=== PATIENT | female | born 1975 | race Caucasian/White ===

== ENCOUNTER 2017-04-10 15:37 | Emergency (ER) | payer BC ==
[2017-04-10] MEDS ORDERED: EPINEPHrine AMP 1 MG/ML IM ONE (15:51)
[2017-04-10] MEDS ORDERED: methylPREDNISolone 125 MG* 2 ML VIAL IV ONE (15:51)
[2017-04-10] MEDS ORDERED: NS 0.9% 1000 ML* 1,000 ML IV ONE (15:52)
[2017-04-10] MEDS ORDERED: EPINEPHRINE 1 MG/ML 1 ML VIAL ONE (15:55)
[2017-04-10] MEDS ORDERED: methylPREDNISolone 125 MG* 2 ML VIAL ONE (15:55)
[2017-04-10 18:55] VITALS: BP 136/73
--- NOTE | 2017-04-18 15:09 | ED ---
Elmer Ramirez Angela, scribed for Melvin Doll MD on 04/10/17 at 1612 . Allergic Reaction/Systemic - HPI Summary HPI Summary: This pt is a 42 y.o female presenting to [facility] c/o a bee sting (yellow jacket) to her foot at 15:15 today. Pt notes she took PO Benadryl (50 mg) and Pepcid ( 40 mg) after the bee sting. 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 She reports a scratchy throat, numbness of foot, and nausea. Pt denies itchiness, difficulty breathing, tongue swelling , face swelling, rash. PMHx: hypertension. - History of Current Complaint Chief Complaint: EDAllergicReaction Hx Obtained From: Patient Onset/Duration: Sudden Onset Timing: Constant Pain Intensity: 3 Location: Discrete @ - foot Aggravating Factor(s): Nothing Alleviating Factor(s): Nothing Associated Signs And Symptoms: Positive: Nausea. Negative: Cough Wheezing, Diaphoresis, Difficulty Breathing, Hoarseness, Rash, Throat Tightening - Allergies/Home Medications Allergies/Adverse Reactions: Allergies Allergy/AdvReac Type Severity Reaction Status Date / Time Bee Venom Allergy Anaphylatic Verified 04/10/17 15:46 Shock Haemophilus Influenza Allergy Anaphylatic Verified 04/10/17 15:46 Vaccines Shock jordanian cheese Allergy Anaphylatic Uncoded 04/10/17 15:46 Shock wasp Allergy Anaphylatic Uncoded 04/10/17 15:46 Shock PMH/Surg Hx/FS Hx/Imm Hx Endocrine/Hematology History: Denies: Hx Diabetes Cardiovascular History: Reports: Hx Hypertension Infectious Disease History: No Infectious Disease History: Denies: Traveled Outside the [place] in Last 30 Days - Social History Alcohol Use: None Substance Use Type: Reports: None Smoking Status (MU): Never Smoked Tobacco Review of Systems Negative: Fever, Chills Negative: Erythema ENT: Other - POSITIVE: "Scratchy" throat Negative: Sore Throat Negative: Chest Pain Negative: Shortness Of Breath, Cough Negative: Abdominal Pain, Vomiting, Nausea Negative: dysuria, hematuria Negative: Myalgia, Edema Negative: Rash Neurological: Other - NEGATIVE: Dizziness All Other Systems Reviewed And Are Negative: Yes Physical Exam - Summary Physical Exam Summary: Constitutional: Well-developed, Well-nourished, Alert. (-) Distressed Skin: Warm, Dry HENT: Normocephalic; Atraumatic Eyes: Conjunctiva normal Neck: Musculoskeletal ROM normal neck. (-) JVD, (-) Stridor, (-) Tracheal deviation Cardio: Rhythm regular, rate normal, Heart sounds normal; Intact distal pulses; The pedal pulses are 2+ and symmetric. Radial pulses are 2+ and symmetric. (-) Murmur Pulmonary/Chest wall: Effort normal. (-) Respiratory distress, (-) Wheezes, (-) Rales Abd: Soft, (-) Tenderness, (-) Distension, (-) Guarding, (-) Rebound Musculoskeletal: (-) Edema Lymph: (-) Cervical adenopathy Neuro: Alert, Oriented x3 Psych: Mood and affect Normal Triage Information Reviewed: Yes Vital Signs On Initial Exam: Initial Vitals Temp Pulse Resp BP Pulse Ox 97.2 F 101 20 158/95 96 04/10/17 15:37 04/10/17 15:37 04/10/17 15:37 04/10/17 15:37 04/10/17 15:37 Vital Signs Reviewed: Yes - Anatoly Coma Scale Coma Scale Total: 15 Diagnostics - Vital Signs Vital Signs Temp Pulse Resp BP Pulse Ox 04/10/17 15:44 104 98 04/10/17 15:43 153/79 04/10/17 15:40 97.2 F 101 20 153/79 97 04/10/17 15:37 97.2 F 101 20 158/95 96 - Laboratory Lab Statement: Any lab studies that have been ordered have been reviewed, and results considered in the medical decision making process. Re-Evaluation - Re-Evaluation First Eval Re-Evaluation Time: 17:10 Comment: Pt is feeling better. Second Eval Re-Evaluation Time: 18:33 Comment: Pt is doing well. There is no recurrence of anaphylaxis. Allergic Reaction Course/Dx - Course Course Of Treatment: Elevated BP noted. - Diagnoses Provider Diagnoses: Bee sting, Anaphylaxis Discharge - Discharge Plan Condition: Stable Disposition: HOME Prescriptions: predniSONE TAB* [Deltasone TAB*] 20 mg PO DAILY #4 tab Referrals: [facility] [Outside] Additional Instructions: Your blood pressure was elevated during today's visit. Please establish a primary care physician and follow up with a primary for blood pressure reading. RETURN TO THE EMERGENCY DEPARTMENT FOR CHANGING OR WORSENING SYMPTOMS. The documentation as recorded by the Elmer angulo Angela accurately reflects the service I personally performed and the decisions made by , Melvin Doll MD.
== END 2017-04-10 18:50 | disposition home or self-care (01) ==
LOC: ED 15:37
DX: T63.441A Toxic effect of venom of bees, accidental (unintentional), initial encounter (principal); R11.0 Nausea; Y92.9 Unspecified place or not applicable
CPT/HCPCS: 96372; 99283; J0171; J2930

== ENCOUNTER 2018-03-13 15:32 | Emergency (ER) | payer OTHER ==
--- NOTE | 2018-03-13 16:26 | ED ---
- HPI Summary HPI Summary: 43 y/o female presents to the ED s/p finger stick while giving IV to a patient at around 15:00 today. 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 Pt is currently asymptomatic. - History of Current Complaint Chief Complaint: EDExposureBodyFluid Stated Complaint: FINGER STICK Time Seen by Provider: 03/13/18 16:21 Needlestick: Hollow Needle Blood on Needle: No Depth of Needlestick: Puncture Body Fluid Exposure: Blood Treatment GEM CARVER: Cleaned Wound PMH/Surg Hx/FS Hx/Imm Hx Previously Healthy: Yes Endocrine/Hematology History: Denies: Hx Diabetes Cardiovascular History: Reports: Hx Hypertension Infectious Disease History: No Infectious Disease History: Denies: Traveled Outside the [place] in Last 30 Days - Family History Known Family History: Positive: Unknown - Social History Alcohol Use: Occasionally Substance Use Type: Reports: None Smoking Status (MU): Never Smoked Tobacco Review of Systems Constitutional: Negative Eyes: Negative ENT: Negative Cardiovascular: Negative Respiratory: Negative Gastrointestinal: Negative Genitourinary: Negative Musculoskeletal: Negative Skin: Negative, Other - accidental needle stick Neurological: Negative Psychological: Normal All Other Systems Reviewed And Are Negative: Yes Physical Exam - Summary Physical Exam Summary: Appearance: Well-appearing, Well-nourished Skin: Warm, no puncture isaura noted Eyes: Normal ENT: Normal Neck: Supple, nontender Respiratory: Clear to auscultation Cardiovascular: Regular rate, regular rhythm. Normal S1, S2. Abdomen: Soft, nontender Musculoskeletal: Normal, Strength/ROM Intact Neurological: Normal, A&Ox3 Psychiatric: Normal General: No acute distress Triage Information Reviewed: Yes Vital Signs On Initial Exam: Initial Vitals Temp Pulse Resp BP Pulse Ox 98.6 F 96 20 173/88 98 03/13/18 15:35 03/13/18 15:35 03/13/18 15:35 03/13/18 15:35 03/13/18 15:35 Vital Signs Reviewed: Yes Diagnostics - Vital Signs Vital Signs Temp Pulse Resp BP Pulse Ox 03/13/18 15:35 98.6 F 96 20 173/88 98 - Laboratory Result Diagrams: 03/13/18 17:09 03/13/18 17:09 Lab Statement: Any lab studies that have been ordered have been reviewed, and results considered in the medical decision making process. Needlestick Course/Dx - Course Course Of Treatment: Pt momentarily stuck herself with needle. PEP medication offered to pt but declined totake it at this time. Incident report filed by Pola the chief nurse. Blood will be drawn from the low risk pt for Rapid HIV and Hep panel per protocol. 1st set of labs, Hep panel and HIV neg. Advised pt that blood test be one at time 0, 3 and 6th months post-exposure - Diagnoses Provider Diagnoses: Needlestick injury accident Discharge - Sign-Out/Discharge Documenting (check all that apply): Patient Departure - Discharge Plan Condition: Stable Disposition: HOME Patient Education Materials: Needle Stick Injuries (ED) Referrals: Bentley Franco MD [Primary Care Provider] - - Billing Disposition and Condition Condition: STABLE Disposition: Home
[2018-03-13 17:17] LABS: ABS Basophils 0.1 10^3/ul (0-0.2); ABS Eosinophils 0.1 10^3/ul (0-0.6); ABS Lymphocytes 2.3 10^3/ul (1.0-4.8); ABS Monocytes 0.6 10^3/ul (0-0.8); ABS Neutrophils 5.5 10^3/ul (1.5-7.7); ABS Nucleated RBC 0 10^3/ul; Eosinophil % 1.6 % (0-6); Hematocrit 36 % (35-47); Hemoglobin 11.9 g/dl (12.0-16.0); Lymphocyte % 26.9 % (25-47); Mean Corpuscular HGB Conc 33 g/dl (31-36); Mean Corpuscular Hemoglobin 26 pg (27-31); Mean Corpuscular Volume 78 fL (80-97); Nucleated Red Blood Cells % 0.1; Platelet Count 403 10^3/ul (150-450); Red Blood Count 4.58 10^6/ul (4.00-5.40); Red Cell Distribution Width 14 % (10.5-15); White Blood Count 8.6 10^3/ul (3.5-10.8)
[2018-03-13 17:40] LABS: EGFR Non-African American 67.7 (>60)
[2018-03-13 19:21] VITALS: BP 170/87
== END 2018-03-13 18:45 | disposition home or self-care (01) ==
LOC: ED 15:32
DX: S61.239A Puncture wound without foreign body of unspecified finger without damage to nail, initial encounter (principal); W46.1XXA Contact with contaminated hypodermic needle, initial encounter; Y93.F9 Activity, other caregiving; Y92.238 Other place in hospital as the place of occurrence of the external cause; Y99.0 Civilian activity done for income or pay
CPT/HCPCS: 36415; 80053; 85025; 86703; 86706; 86803; 87340; 99282

== ENCOUNTER 2018-07-27 15:46 | Emergency (ER) | payer BC ==
[2018-07-27] MEDS ORDERED: methylPREDNISolone 125 MG* 2 ML VIAL IV ONE (15:49)
[2018-07-27] MEDS ORDERED: Famotidine IV* 10 MG/ML 2 ML (20 mg) IV SLOW PU ONE (15:49)
[2018-07-27] MEDS ORDERED: diPHENhydraMINE IV* 50 MG/ML 1 ml VIAL (BENADRYL) IV ONE (15:49)
--- NOTE | 2018-07-27 15:58 | ED ---
Allergic Reaction/Systemic - HPI Summary HPI Summary: A 43 y/o female presents to [facility] with a chief complaint of an anaphylactic reaction to albanian cheese at around 15:10. She took Benadryl 50mg and Pepsid 20 mg at around 15:15. She c/o SOB and redness around her face. She rates her pain as a 0/10. - History of Current Complaint Chief Complaint: EDAllergicReaction Time Seen by Provider: 07/27/18 15:49 Hx Obtained From: Patient Onset/Duration: Sudden Onset, Started minutes ago, Still Present Timing: Constant Pain Intensity: 0 Pain Scale Used: 0-10 Numeric Aggravating Factor(s): Nothing Alleviating Factor(s): Nothing Associated Signs And Symptoms: Positive: Difficulty Breathing - Allergies/Home Medications Allergies/Adverse Reactions: Allergies Allergy/AdvReac Type Severity Reaction Status Date / Time lisinopril Allergy Coughing Verified 07/27/18 15:55 losartan Allergy See Comment Verified 07/27/18 15:55 metformin Allergy Shortness Verified 07/27/18 15:55 of Breath MS Bee Venom Allergy Anaphylatic Verified 07/27/18 15:55 Shock MS Haemophilus Influenza Allergy Anaphylatic Verified 07/27/18 15:55 Vaccines Shock Penicillins Allergy Anaphylatic Verified 07/27/18 15:55 Shock albanian cheese Allergy Anaphylatic Uncoded 07/27/18 15:55 Shock wasp Allergy Anaphylatic Uncoded 07/27/18 15:55 Shock PMH/Surg Hx/FS Hx/Imm Hx Endocrine/Hematology History: Denies: Hx Diabetes Cardiovascular History: Reports: Hx Hypertension Infectious Disease History: No Infectious Disease History: Denies: Traveled Outside the [place] in Last 30 Days - Family History Known Family History: Positive: Cardiac Disease, Hypertension, Diabetes, Other - Cancer - Social History Alcohol Use: Occasionally Substance Use Type: Reports: None Smoking Status (MU): Never Smoked Tobacco Review of Systems Positive: Shortness Of Breath Skin: Other - Positive: erythematous face All Other Systems Reviewed And Are Negative: Yes Physical Exam - Summary Physical Exam Summary: Appearance: The patient is well-nourished in no acute distress and in no acute pain. Skin: The skin is warm and dry. Erythema over face and arms. HEENT: The head is normocephalic and atraumatic. The pupils are equal and reactive. The conjunctivae are clear and without drainage. Nares are patent and without drainage. Mouth reveals moist mucous membranes and the throat is without erythema and exudate. The external ears are intact. The ear canals are patent and without drainage. The tympanic membranes are intact. Neck: The neck is supple with full range of motion and non-tender. There are no carotid bruits. There is no neck vein distension. Respiratory: Chest is non-tender. Lungs are clear to auscultation and breath sounds are symmetrical and equal. Voice is coarse. Cardiovascular: Heart is regular rate and rhythm. There is no murmur or rub auscultated. There is no peripheral edema and pulses are symmetrical and equal. Abdomen: The abdomen is soft and non-tender. There are normal bowel sounds heard in all four quadrants and there is no organomegaly palpated. Musculoskeletal: There is no back tenderness noted. Extremities are non-tender with full range of motion. There is good capillary refill. There is no peripheral edema or calf tenderness elicited. Neurological: Patient is alert and oriented to person, place and time. The patient has symmetrical motor strength in all four extremities. Cranial nerves are grossly intact. Deep tendon reflexes are symmetrical and equal in all four extremities. Psychiatric: The patient has an appropriate affect and does not exhibit any anxiety or depression. Triage Information Reviewed: Yes Vital Signs On Initial Exam: Initial Vitals Temp Pulse Resp BP Pulse Ox 99.4 F 121 24 152/105 99 07/27/18 15:47 07/27/18 15:47 07/27/18 15:47 07/27/18 15:47 07/27/18 15:47 Vital Signs Reviewed: Yes Diagnostics - Vital Signs Vital Signs Temp Pulse Resp BP Pulse Ox 07/27/18 15:52 99.4 F 108 16 155/88 99 07/27/18 15:47 99.4 F 121 24 152/105 99 - Laboratory Lab Statement: Any lab studies that have been ordered have been reviewed, and results considered in the medical decision making process. Re-Evaluation - Re-Evaluation First Eval Re-Evaluation Time: 17:40 Change: Improved Comment: Patient states that she is feling fine. Second Eval Re-Evaluation Time: 18:30 Change: Improved Comment: Patient is ready for DC. 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 She was not aware that there was supposed she is on several large and she is allergic. She started to get symptomatic with some throat closing and itchiness and took Benadryl and Pepcid. She continued to worsen therefore she signed in and was placed in room 16. IV was initiated and at that point she had a hoarse voice and diffuse urticaria but no wheezing and was not in respiratory distress. She was given IV Benadryl, Pepcid and Solu- Medrol and improved dramatically. We watched her for a while and she remained stable and she was discharged in good condition. - Diagnoses Provider Diagnoses: Allergic reaction Discharge - Sign-Out/Discharge Documenting (check all that apply): Patient Departure - DC - Discharge Plan Condition: Stable Disposition: HOME Patient Education Materials: Food Allergy (ED) Referrals: April TAPIA,Chandra Schaefer [Primary Care Provider] - (2-3 days) Additional Instructions: Follow up with your PCP in 2-3 days. Return to the ED if you experience any new or worsening symptoms. - Billing Disposition and Condition Condition: STABLE Disposition: Home - Attestation Statements Document Initiated by Miladisibe: Yes Documenting Scribe: Bal Josue Provider For Whom Vern is Documenting (Include Credential): Prashant Erwin MD Scribe Attestation: I, Bal Josue, scribed for Prashant Erwin MD on 07/27/18 at 2052. Scribe Documentation Reviewed: Yes Provider Attestation: The documentation as recorded by the Bal angulo accurately reflects the service I personally performed and the decisions made by me, Prashant Erwin MD Status of Scribe Document: Viewed
[2018-07-27 18:55] VITALS: BP 160/94
== END 2018-07-27 18:40 | disposition home or self-care (01) ==
LOC: ED 15:46
DX: T78.1XXA Other adverse food reactions, not elsewhere classified, initial encounter (principal); R06.02 Shortness of breath; R21 Rash and other nonspecific skin eruption; X58.XXXA Exposure to other specified factors, initial encounter; Z91.030 Bee allergy status; Z88.0 Allergy status to penicillin; Z88.7 Allergy status to serum and vaccine; Z88.8 Allergy status to other drugs, medicaments and biological substances; Z91.018 Allergy to other foods
CPT/HCPCS: 99284; J1200; J2930

== ENCOUNTER 2019-01-03 13:53 | Emergency (ER) | payer BC ==
--- NOTE | 2019-01-03 14:18 | ED ---
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 Reports bleeding through a super tampon per hour. Patient attempted to eat to see if symptoms would improve; however, dizziness progressed. She states her BP has been low for her while working today. Patient reports history of heavy bleeding but has never experienced secondary dizziness before. - History of Current Complaint Chief Complaint: EDDizziness Time Seen by Provider: 01/03/19 14:05 Stated Complaint: DIZZINESS PER PT Hx Obtained From: Patient Onset/Duration: Started Hours Ago Timing: Constant Vaginal Bleeding Description: Clots Number of Pads per Hour: 1 - tampon Pain Intensity: 0 Associated Signs and Symptoms: Positive: Dizziness, Weakness, Other: - low BP Alleviating Factor(s): Nothing - Allergy/Home Medications Allergies/Adverse Reactions: Allergies Allergy/AdvReac Type Severity Reaction Status Date / Time bee venom protein (honey bee) Allergy Anaphylatic Verified 01/03/19 14:00 Shock influenza virus vaccine, Allergy Anaphylatic Verified 01/03/19 14:00 specific Shock lisinopril Allergy Coughing Verified 07/27/18 15:55 losartan Allergy See Comment Verified 07/27/18 15:55 metformin Allergy Shortness Verified 07/27/18 15:55 of Breath Penicillins Allergy Anaphylatic Verified 07/27/18 15:55 Shock jordanian cheese Allergy Anaphylatic Uncoded 07/27/18 15:55 Shock wasp Allergy Anaphylatic Uncoded 07/27/18 15:55 Shock PMH/Surg Hx/FS Hx/Imm Hx Endocrine/Hematology History: Denies: Hx Diabetes Cardiovascular History: Reports: Hx Hypertension Infectious Disease History: No Infectious Disease History: Denies: Traveled Outside the [place] in Last 30 Days - Family History Known Family History: Positive: Cardiac Disease, Hypertension, Diabetes, Other - Cancer - Social History Alcohol Use: Occasionally Substance Use Type: Reports: None Smoking Status (MU): Never Smoked Tobacco Review of Systems Constitutional: Other - low BP Positive: Other - dizziness Genitourinary: Other - heavy bleeding All Other Systems Reviewed And Are Negative: Yes Physical Exam - Summary Physical Exam Summary: Appearance: Well-appearing, Well-nourished, lying in bed comfortably Skin: Warm, dry, no obvious rash Eyes: sclera anicteric, no conjunctival pallor ENT: mucous membranes moist, pharynx appears normal Neck: Supple, nontender Respiratory: Clear to auscultation, no signs of respiratory distress Cardiovascular: Normal S1, S2. No murmurs. Normal distal pulses in tibial and radial bilaterally. Abdomen: Soft, nontender, normal active bowel sounds present Musculoskeletal: Normal, Strength/ROM Intact Neurological: A&Ox3, awake and alert, mentation is normal, speech is fluent and appropriate Psychiatric: affect is normal, does not appear anxious or depressed Triage Information Reviewed: Yes Vital Signs On Initial Exam: Initial Vitals Temp Pulse Resp BP Pulse Ox 100 F 89 18 155/85 98 01/03/19 14:00 01/03/19 14:00 01/03/19 14:00 01/03/19 14:00 01/03/19 14:00 Vital Signs Reviewed: Yes Diagnostics - Vital Signs Vital Signs Temp Pulse Resp BP Pulse Ox 01/03/19 14:00 100 F 89 18 155/85 98 - Laboratory Result Diagrams: 01/03/19 14:19 01/03/19 14:19 Lab Statement: Any lab studies that have been ordered have been reviewed, and results considered in the medical decision making process. Re-Evaluation - Re-Evaluation 1 Re-Evaluation Time: 16:30 Change: Improved - Patient reports feeling better and agrees to discharge. GIGU Course/Dx - Course Course Of Treatment: 43 year old F with a chief complaint of heavy menstruating beginning last night with dizziness worsening this morning. Bloodwork and UA obtained with no concern for acute blood loss. Patient is given 2000mls of IV fluids. Patient reports feeling better and will be discharged home. Patient is agreeable with this plan. - Diagnoses Provider Diagnoses: Menorrhagia Discharge - Sign-Out/Discharge Documenting (check all that apply): Patient Departure - discharge Patient Received Moderate/Deep Sedation with Procedure: No - Discharge Plan Condition: Good Disposition: HOME Patient Education Materials: Menorrhagia (ED) Referrals: April TAPIA,Chandra Schaefer [Primary Care Provider] - Additional Instructions: Stay at home and rest until you are feeling better. I would recommend talking to you PEDIATRIC HOSPITALIST about this, as there are other option to controlling severe bleeding without hormonal therapy. - Billing Disposition and Condition Condition: GOOD Disposition: Home - Attestation Statements Document Initiated by Scribe: Yes Documenting Scribe: Nella Arias Provider For Whom Miladisibcesar is Documenting (Include Credential): Prsahant Cortez MD Scribe Attestation: I, Nella Arias, scribed for Prashant Cortez MD on 01/06/19 at 0950. Scribe Documentation Reviewed: Yes Provider Attestation: The documentation as recorded by the miladisibeNella accurately reflects the service I personally performed and the decisions made by me, Prashant Cortez MD Status of Scribe Document: Viewed
[2019-01-03 14:31] LABS: ABS Eosinophils 0.1 10^3/ul (0-0.6); ABS Lymphocytes 2.2 10^3/ul (1.0-4.8); ABS Monocytes 0.5 10^3/ul (0-0.8); ABS Neutrophils 4.8 10^3/ul (1.5-7.7); Eosinophil % 1.9 %; Hematocrit 34 % (35-47); Hemoglobin 11.2 g/dL (12.0-16.0); Lymphocyte % 29.2 %; Mean Corpuscular HGB Conc 33 g/dL (31-36); Mean Corpuscular Hemoglobin 25 pg (27-31); Mean Corpuscular Volume 77 fL (80-97); Nucleated Red Blood Cells % 0.1; Platelet Count 432 10^3/uL (150-450); Red Blood Count 4.49 10^6 /uL (3.70-4.87); Red Cell Distribution Width 15 % (10.5-15); White Blood Count 7.7 10^3/uL (3.5-10.8)
[2019-01-03] MEDS: NS 0.9% 1000 ML** 2,000 ML IV ONE ×2 (14:34→15:36)
[2019-01-03 14:47] LABS: ALT 18 U/L (7-52); AST 15 U/L (13-39); Albumin 3.9 g/dL (3.2-5.2); Albumin/Globulin Ratio 1.3 (1-3); Alkaline Phosphatase 98 U/L (34-104); Anion Gap 6 mmol/L (2-11); BUN/Creatinine Ratio 13.6 (8-20); Blood Urea Nitrogen 12 mg/dL (6-24); CO2 Carbon Dioxide 29 mmol/L (22-32); Chloride 104 mmol/L (101-111); EGFR African American 84.1 (>60); EGFR Non-African American 69.5 (>60); Globulin 2.9 g/dL (2-4); Glucose 112 mg/dL (70-100); Potassium 4.1 mmol/L (3.5-5.0); Sodium 139 mmol/L (135-145); Total Protein 6.8 g/dL (6.4-8.9)
[2019-01-03 14:54] LABS: HCG Pregnancy < 0.60 mIU/mL
[2019-01-03 15:57] LABS: Urine Appearance Clear; Urine Bacteria 1+ (Absent); Urine Bilirubin Negative (Negative); Urine Blood 2+ (Negative); Urine Color Colorless; Urine Glucose Negative (Negative); Urine Ketones Negative (Negative); Urine Nitrite Negative (Negative); Urine Protein Negative (Negative); Urine Red Blood Cell Trace(0-2/hpf) (Absent); Urine Specific Gravity 1.004 (1.010-1.030); Urine Squamous Epithelial Cell Present (Absent); Urine Urobilinogen Negative (Negative); Urine White Blood Cell Trace(0-5/hpf) (Absent)
[2019-01-03 16:47] VITALS: BP 142/78
== END 2019-01-03 16:47 | disposition home or self-care (01) ==
LOC: ED 13:53
DX: N92.0 Excessive and frequent menstruation with regular cycle (principal); I10 Essential (primary) hypertension; Z88.0 Allergy status to penicillin
CPT/HCPCS: 36415; 80053; 81003; 81015; 83605; 84702; 85025; 87086; 96360; 96361; 99283